=== PATIENT | male | born 1995 | race Caucasian/White ===

== ENCOUNTER 2017-08-12 14:50 | Emergency (ER) | payer OTHER ==
[~2017-08-12] VITALS: Ht 182.9 cm; Wt 100.0 kg
[2017-08-12 14:56] VITALS: BP 170/83; PULSE 81; RESP 18; TEMP 97.8; O2SAT 99
[2017-08-12] MEDS ORDERED: KETOROLAC TROMETHAMINE 60 MG/2 ML (IM) VIAL IM ONE (16:45)
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
[2017-08-12] MEDS ORDERED: DIAZEPAM 5 MG TAB PO ONE (18:00)
[2017-08-12] MEDS ORDERED: IBUP-232 PO (18:53)
== END 2017-08-12 23:20 | disposition home or self-care (01) ==
LOC: NEPD 14:50
DX: S00.81XA Abrasion of other part of head, initial encounter (principal); S50.312A Abrasion of left elbow, initial encounter; V49.40XA Driver injured in collision with unspecified motor vehicles in traffic accident, initial encounter; Y92.488 Other paved roadways as the place of occurrence of the external cause
CPT/HCPCS: 70450; 70486; 71046; 72125; 73080; 96372; 99284; J1885